=== PATIENT | female | born 1965 | race Caucasian/White ===

== ENCOUNTER 2016-10-12 22:19 | Inpatient (IN) | payer SELFPAY ==
--- NOTE | ~2016-10-12 | DS ---
Discharge Summary [facility] [address] [place]. [address] NAME: FELICIANO SHANE : 67 STATUS : DIS Damaris PAT#: [id number] AGE: 51 ADM/REG DATE : 10/12/16 MR#: [id number] REPORT SERV DATE: 10/14/16 DICTATED BY: SERGO NICK DATE: 10/14/16 REPORT STATUS : Draft TRANSCRIBED BY: MODL DATE: 10/14/16 ADMISSION DATE: 10/12/2016 DISCHARGE DATE: 10/14/2016 REASON FOR ADMISSION: This is a 51-year-old female, who presented with left-sided weakness and paresthesias with a 35-year history of smoking, now former smoker, and a history of uncontrolled diabetes. Imaging in the ER: CT scan of the brain which showed no acute intracranial process. The patient was admitted for TIA versus stroke, and neuro was consulted. MRI of the brain was ordered and would show acute right thalamic infarct. No bleed. The patient started on aspirin 325 mg and atorvastatin 80 mg p.o. daily. MRA of the head, which shows mild atherosclerotic features. MRA of the neck which shows right carotid stenosis proximally, carotid vertebrals of left subclavian within normal limits. Followup carotid ultrasound would show a category 1 disease, less than 50% stenosis of bilateral carotid arteries. Echocardiogram would show normal left ventricular size and systolic function with EF of 60%. No regional wall abnormalities, mild concentric LVH, mild diastolic dysfunction, normal right ventricular size and systolic function, aortic valve sclerosis without stenosis, normal left atrial size, negative intravenous bubble study. No evidence of intracardiac shunt or clot. The patient would have no residual left-sided weakness or paresthesias. She was seen by Physical Therapy here at the hospital and they cleared her for discharge home. So, the patient to be sent home with new prescriptions for aspirin and atorvastatin. Uncontrolled diabetes. The patient has a A1c of 11.3%. Apparently, this is actually down from recent A1c about a month ago that was 12.5. The patient is on Lantus 35 units at bedtime at home and was on Levemir 40 units here at the hospital. We will continue her on 40 units of long-acting insulin at night. She is on NovoLog 10 units at lunch time and a sliding scale. Here at the hospital, we had her on 10 units with all three meals and sliding scale. So, we will continue that at home as well. Discussed with the patient importance of controlling her diabetes now that she has had stroke. She is at increased risk for further cardiovascular events. The patient also has a left diabetic foot ulcer, just completed antibiotic course on that. Culture was growing out abundant Staphylococcus species, but she has just completed antibiotic course. So, we will have her follow up with her primary care for further care of her left foot. She does not have any foul-smelling drainage or appearance of infection. DISCHARGE CONDITION: Stable. DISCHARGE MEDICATIONS: 1. Lasix 20 mg p.o. daily. 2. Carvedilol 3.125 mg p.o. b.i.d. 3. Lisinopril 20 mg p.o. daily. 4. Lantus 40 units at bedtime. 5. NovoLog 10 units a.c. t.i.d. 6. NovoLog sliding-scale insulin. 7. Aleve 220 mg p.o. p.r.n. 8. Aspirin 325 mg p.o. daily. Discharge Summary [address] [address] NAME: FELICIANO SHANE : 67 STATUS : DIS Damaris PAT#: [id number] AGE: 51 ADM/REG DATE : 10/12/16 MR#: [id number] REPORT SERV DATE: 10/14/16 DICTATED BY: SERGO NICK DATE: 10/14/16 REPORT STATUS : Draft TRANSCRIBED BY: HERBERTL DATE: 10/14/16 9. Lipitor 80 mg p.o. daily. DISCHARGE PLAN: The patient is discharged home. Follow up with her primary care, Leonel Quezada next week on new medications and diabetes control and diabetic left foot ulcer. TDR/MODL Sergo Nick APN / [id number] CC: Janiya Bolden M.D. Louann L. Johnson, [facility]
--- NOTE | ~2016-10-12 | HP ---
History And Physical [place] [id number] [facility] [place]. [address] NAME: FELICIANO SHANE : 67 STATUS : ADM Damaris PAT#: [id number] AGE: 51 ADM/REG DATE : 10/12/16 MR#: [id number] REPORT SERV DATE: 10/13/16 DICTATED BY: KARINA MCKENZIE DATE: 10/13/16 REPORT STATUS : Draft TRANSCRIBED BY: MODL DATE: 10/13/16 DATE OF ADMISSION: 10/12/2016 CHIEF COMPLAINT: A 51-year-old female presenting with left-sided weakness and paresthesias. HISTORY OF PRESENT ILLNESS: The patient's history was obtained through careful interview with the patient and son coupled with review of [employer] [facility] medical records. The patient states for about four days she has been having illness. It began as some nausea with occasional vomiting, but then on the day prior to admission, she began to develop left arm numbness that then progressed into her face and her legs. She thinks that she has developed some left leg weakness as well. She finds that the left leg is easily fatigued on the day of admission, and she was "not stepping right." She has noticed no left arm weakness, however. No facial droop. No vision changes. No double vision. No dysarthria. No confusion. No gait disturbance. She admits for a few days that her diabetes has been difficult to control. She has had chills, but no fevers. No myalgias. No chest pain. No headache. No abdominal pain. She [facility] persistent [facility] foot ulcer. She completed an antibiotic about a week ago for this. She thinks that it has been healing well, but she has noticed occasional foul odor from it and some slight purulent drainage recently. REVIEW OF SYSTEMS: Otherwise, a 14-point review of systems was obtained and was negative. PAST MEDICAL HISTORY: 1. Diabetes with recent hemoglobin A1c of 12.5 in August 2016. 2. Diabetic foot ulcer. 3. MRSA. 4. Pleural effusion. PAST SURGICAL HISTORY: 1. Cleft lip surgery. 2. x2. ALLERGIES: ERYTHROMYCIN. SOCIAL HISTORY: She quit smoking 35 days ago. She is . Lives in [place], [place], with her son, daughter, and four grandchildren. She works for [email or web address]. No alcohol use. History And Physical [address] [address] NAME: FELICIANO HSANE : 67 STATUS : ADM Damaris PAT#: [id number] AGE: 51 ADM/REG DATE : 10/12/16 MR#: [id number] REPORT SERV DATE: 10/13/16 DICTATED BY: KARINA MCKENZIE DATE: 10/13/16 REPORT STATUS : Draft TRANSCRIBED BY: UMU DATE: 10/13/16 FAMILY HISTORY: Diabetes. CURRENT MEDICATIONS: Include aspirin 81 mg p.o. daily, Coreg 3.25 mg p.o. b.i.d., Lasix 20 mg p.o. daily, NovoLog 10 units subcutaneous daily with meals, sliding scale insulin, Lantus 35 units subcutaneous at bedtime, lisinopril 20 mg p.o. daily, and naproxen p.r.n. PHYSICAL EXAMINATION: VITAL SIGNS: Temperature 98.0, pulse 102, blood pressure 206/99, respiratory rate 16, and O2 saturation 99% on room air. GENERAL: A pleasant, cooperative female, no evidence of acute distress at this time. NEUROLOGICAL: Cranial nerves 2 through 12 are intact and symmetrical. The patient has 5/5 strength in upper and lower extremities that is symmetrical. HEENT: Pupils equal, round, and reactive to light. No conjunctival pallor. No scleral icterus. Nares are patent. Oropharynx is clear of obstruction. Dry mucous membranes. NECK: Trachea midline. No thyromegaly. LYMPH: No cervical lymphadenopathy. No supraclavicular lymphadenopathy. No inguinal lymphadenopathy. RESPIRATORY: Clear to auscultation at bases. No wheezes, rales, or rhonchi. Normal respiratory effort. CARDIOVASCULAR: Tachycardic, regular rhythm. No murmurs, rubs, or gallops. No extremity edema is appreciated. ABDOMEN: Soft, nontender, nondistended. Normal bowel sounds auscultated throughout. No organomegaly. DERMATOLOGICAL: The lateral aspect of her left foot shows a small about 1 cm diabetic foot ulcer with some purulent drainage and foul odor. Some necrotic debris around it. No surrounding erythema, heat, swelling, or tenderness though. Otherwise, patient has warm, dry extremities. No pallor, no cyanosis. PSYCHIATRIC: Normal affect. Good mood. Alert and oriented x3. LABORATORY DATA: White blood cell count 10.3, hemoglobin 12, hematocrit 35, and platelets 282. Sodium 133, potassium 4.3, chloride 97, bicarb 25, BUN 53, creatinine 1.22 from baseline creatinine of 0.8, glucose 247, troponin negative. INR 1.0. Liver enzymes within normal limits. STUDIES: 1. Chest x-ray by my own evaluation shows cardiomegaly. 2. EKG by my own evaluation shows sinus rhythm. 3. CT scan of the brain without contrast shows no acute intracranial process. ASSESSMENT AND PLAN: 1. Transient ischemic attack. We will check an MRI of the brain, MRA of the carotids and brain, check an echocardiogram, place on aspirin, check fasting lipid panel, and check telemetry. 2. Acute kidney injury. Place on IV fluids. Hold Lasix. 3. Diabetes. Check hemoglobin A1c. Continue Lantus. Place on sliding scale insulin. History And Physical [address] [address] NAME: FELICIANO SHANE : 67 STATUS : ADM Damaris PAT#: [id number] AGE: 51 ADM/REG DATE : 10/12/16 MR#: [id number] REPORT SERV DATE: 10/13/16 DICTATED BY: KARINA MCKENZIE DATE: 10/13/16 REPORT STATUS : Draft TRANSCRIBED BY: UMU DATE: 10/13/16 4. Left diabetic foot ulcer. Continue antibiotics (?). We will obtain a Wound Care consult. Recheck a wound culture, which was done at the bedside. KPL/MODL Karina Mckenzie M.D. / [id number] CC: Dario Jordan Jr, MD David Phillips, M.D.
--- NOTE | ~2016-10-12 | CN ---
Consultation Report [facility] [address] [place]. [address] NAME: FELICIANO SHANE : 67 STATUS : ADM Damaris PAT#: [id number] AGE: 51 ADM/REG DATE : 10/12/16 MR#: [id number] REPORT SERV DATE: 10/13/16 DICTATED BY: CLARENCE MILLER DATE: 10/13/16 REPORT STATUS : Draft TRANSCRIBED BY: MODCesar DATE: 10/13/16 NEUROLOGY CONSULTATION DATE OF CONSULTATION: HOSPITALIST: Dario Jordan MD REASON FOR CONSULTATION: Stroke. HISTORY OF PRESENT ILLNESS: The patient is a 51-year-old female who has been sick for the last 4 days. On Sunday, she started to experience nausea. On Sunday, she started to experience nausea and vomiting while she was at work, so she went home sick. She felt ill the whole day. She denied any fever or chills. On Sunday, she woke up and she had numbness and tingling along with weakness in the left side of her body. She denied any ataxia. She denied any dysarthria, aphasia, or changes in her vision. This numbness and weakness persisted on the left side of her body through Sunday. On evening, she decided to come in to work for further evaluation and treatment. PAST MEDICAL HISTORY: Left foot ulcer, diabetes mellitus type 2 with a hemoglobin A1c as high as 12.5, MRSA, pleural effusion, hypertension, tobacco abuse, diastolic dysfunction, pulmonary hypertension, vertigo, and peripheral neuropathy. PAST SURGICAL HISTORY: Cleft lip surgery, x2, and cataract extraction with lens implantation at the age of 31. HOME MEDICATIONS: Includes aspirin 81 mg q.a.m., Coreg 3.25 mg b.i.d., Lasix 20 mg q.a.m., NovoLog insulin 10 units subcu with lunch and sliding scale a.c. and h.s., Lantus insulin 35 units with supper, Zestril 20 mg at bedtime, Aleve p.r.n. ALLERGIES: ERYTHROMYCIN. SOCIAL HISTORY: The patient is . She lives with her son and daughter and has 4 grand children. She works for [employer]. She is a smoker, who states she quit 30 days ago. Does not drink alcohol or use illicits. FAMILY HISTORY: The patient's mother is 71 years old. She just was diagnosed with diabetes type 2. She also has a pacemaker for neurocardiogenic syncope. Her father is 71 years old. He has diabetes and also pacemaker. She is an only sibling. REVIEW OF SYSTEMS: For pertinent positives, see HPI. PHYSICAL EXAMINATION: GENERAL: The patient is a 51-year-old female, who stands 6 feet 1 and weighs 210 pounds. Consultation Report [address] [address] NAME: FELICIANO SHANE : 67 STATUS : ADM Damaris PAT#: [id number] AGE: 51 ADM/REG DATE : 10/12/16 MR#: [id number] REPORT SERV DATE: 10/13/16 DICTATED BY: CLARENCE MILLER DATE: 10/13/16 REPORT STATUS : Draft TRANSCRIBED BY: UMU DATE: 10/13/16 She is afebrile. Heart rate 86, respiratory rate 24, O2 saturations on room air 99%, blood pressure 180/83. NEUROLOGIC: The patient is alert. She is oriented x4. She is pleasant. Communicates appropriately. Pupils are 3 mm. PERRLA. Cranial nerves 2 through 12 are intact except the patient does mention she has numbness on the left side of her face in all 3 trigeminal regions. She has no dysarthria. No aphasia and vision via confrontation is full in both [place]. [id number]-uxcy reveals no ataxia. Cyxr-[id number] no ataxia, no dysmetria, asterixis, or tremor. No pronator drift. Upper extremity strength is 5/5 bilaterally. Upper DTRs 1+ bilaterally. The patient reports diminished sensation on the left side when compared to the right. In the lower extremities, strength is 5/5 bilaterally. Unable to elicit DTRs in the lower extremities (the patient has peripheral neuropathy). The patient reports diminished sensation on the left side when compared to the right. NECK: No carotid bruits. No JVD. CHEST: Lung sounds clear. CARDIAC: Regular rate and rhythm with a few premature beats and a grade 2/6 systolic murmur heard best in the aortic region. LABORATORY DATA: CBC normal. BMP: BUN was 58 and glucose 188. A1c 11.3. Thyroid normal. Total cholesterol 345, HDL 39, LDL 306, and triglycerides 410. Urinalysis was negative for UTI. MRI of the brain shows acute right thalamic infarct. MRA of the head, neck, proximal right carotid stenosis. NIH stroke scale was 2. ASSESSMENT/PLAN: Acute right thalamic stroke. The patient's aspirin will be increased to 325 mg daily. She will be placed on Lipitor 80 mg daily. PT and OT will be consulted. The patient will not need speech therapy. She most likely will not need rehab. in service educator will be consulted. The patient's education was done on diminishing risk factors. She will undergo an echocardiogram with bubble study and carotid duplex study. Vascular Surgery has already seen the patient in consultation. Thank you again for including us in consultation. We will continue to follow with you. FAITH/UMU GHISLAINE SzymanskiP-BC / [id number] CC: Dario Jordan Jr, MD Leonel Quezada M.D.
[2016-10-12 18:39] LABS: BASOPHILS 0.3 %; BASOPHILS ABSOLUTE 0.03 10/3/uL (0.0-0.16); EOSINOPHILS 1.7 %; EOSINOPHILS ABSOLUTE 0.18 10/3/uL (0.0-0.53); ER CBC TAT 0 Hrs 05 Mins; HEMATOCRIT 35.3 % (36.0-48.0); HEMOGLOBIN 11.9 g/dL (12.0-16.0); IMMATURE GRANULOCYTES 0.3 %; IMMATURE GRANULOCYTES ABSOLUTE 0.03 10/3/uL (0.0-0.11); LYMPHOCYTES ABSOLUTE 3.93 10/3/uL (0.67-4.30); MANUAL DIFF NO %; MEAN CORPUS HGB CONC 33.7 g/dL (32.0-36.0); MEAN CORPUSCULAR HEMOGLOB 26.6 pg (26.0-34.0); MEAN PLATELET VOLUME 9.4 fL (9.2-13.0); MONOCYTES 5.3 %; MONOCYTES ABSOLUTE 0.55 10/3/uL (0.21-1.20); NEUTROPHILS 54.4 %; NEUTROPHILS ABSOLUTE 5.62 10/3/uL (2.02-8.40); PLATELET COUNT 282 10/3/uL (150-400); RBC DISTRIBUTION WIDTH 13.9 % (12.0-16.0); RED CELL COUNT 4.47 10/6/uL (4.0-5.6); WHITE BLOOD CELLS 10.3 10/3/uL (4.5-10.5)
[2016-10-12 18:50] LABS: PROTIME (NOT ORD) 12.9 SEC (12.0-14.5)
[2016-10-12 18:54] LABS: A/G RATIO 0.7 (0.7-1.9); ALKALINE PHOSPHATASE 97 U/L (45-117); CALCIUM, SERUM 8.8 MG/DL (8.5-10.4); CHLORIDE, SERUM 97 MMOL/L (96-112); CO2 (CARBON DIOXIDE) 25 MMOL/L (24-34); CREATININE 1.22 MG/DL (0.55-1.02); GFR AFRICAN AMERICAN 60 ML/MIN (>=60); GFR NON AFRICAN AMERICAN 52 ML/MIN (>=60); GLOBULIN 4.7 G/DL (2.5-4.1); POTASSIUM, SERUM 4.3 MMOL/L (3.5-5.3); SGOT(AST) 18 U/L (5-40); SGPT(ALT) 29 U/L (5-65); SODIUM, SERUM 133 MMOL/L (135-148); TOTAL BILIRUBIN 0.2 MG/DL (0-1.2); TROPONIN I <0.02 NG/ML (<0.05)
[2016-10-12 18:56] LABS: ALBUMIN 3.3 G/DL (3.5-5.0); BUN (BLOOD UREA NITROGEN) 53 MG/DL (6-23); GLUCOSE, SERUM 247 MG/DL (60-99)
[~2016-10-12 22:19] MED LIST: ALEVE220 MG PO; ASAB PO; BACDS PO; COREG3 PO; DULERA PO; HUMALOGMIX SC; K500 PO; L20 PO; LANTUS SC; LEVAQUIN750 MG PO; NOVOLOG SC; PRIN10 PO; PRIN20 PO; ZYVOXPO PO
[2016-10-12] MEDS ORDERED: L20 PO (22:26)
[2016-10-12] MEDS ORDERED: LANTUS SC (22:27)
[2016-10-12] MEDS ORDERED: ASAB PO (22:27)
[2016-10-12] MEDS ORDERED: ZESTRIL20 MG PO (22:27)
[2016-10-12] MEDS ORDERED: COREG3 PO (22:27)
[2016-10-12] MEDS ORDERED: NOVOLOG SC ×2 (22:28→22:29)
[2016-10-12] MEDS ORDERED: ALEVE220 MG PO (22:30)
[2016-10-13 04:26] LABS: BASOPHILS 0.4 %; BASOPHILS ABSOLUTE 0.04 10/3/uL (0.0-0.16); EOSINOPHILS 2.4 %; EOSINOPHILS ABSOLUTE 0.23 10/3/uL (0.0-0.53); HEMOGLOBIN 11.9 g/dL (12.0-16.0); IMMATURE GRANULOCYTES 0.1 %; IMMATURE GRANULOCYTES ABSOLUTE 0.01 10/3/uL (0.0-0.11); LYMPHOCYTES 45.8 %; LYMPHOCYTES ABSOLUTE 4.37 10/3/uL (0.67-4.30); MEAN CORPUSCULAR HEMOGLOB 26.6 pg (26.0-34.0); MEAN CORPUSCULAR VOLUME 78.3 fL (80-100); MEAN PLATELET VOLUME 9.4 fL (9.2-13.0); MONOCYTES 6.8 %; MONOCYTES ABSOLUTE 0.65 10/3/uL (0.21-1.20); NEUTROPHILS 44.5 %; NEUTROPHILS ABSOLUTE 4.24 10/3/uL (2.02-8.40); PLATELET COUNT 260 10/3/uL (150-400); RED CELL COUNT 4.47 10/6/uL (4.0-5.6); WHITE BLOOD CELLS 9.5 10/3/uL (4.5-10.5)
[2016-10-13 04:29] LABS: MANUAL DIFF NO %
[2016-10-13 04:33] LABS: PARTIAL THROMBO TIME 26.7 SEC (22.5-37.2); PROTIME (NOT ORD) 13.1 SEC (12.0-14.5)
[2016-10-13 04:51] LABS: A/G RATIO 0.7 (0.7-1.9); ALBUMIN 3.2 G/DL (3.5-5.0); CHLORIDE, SERUM 102 MMOL/L (96-112); CHOL/HDL RATIO(NOT ORDER) 8.8 (0-5); CHOLESTEROL 345 MG/DL (< 200); CO2 (CARBON DIOXIDE) 23 MMOL/L (24-34); CPK (IF ELEVATED MB BANDS) 168 U/L (0-200); CREATININE 1.05 MG/DL (0.55-1.02); GFR AFRICAN AMERICAN 72 ML/MIN (>=60); GFR NON AFRICAN AMERICAN 62 ML/MIN (>=60); GLOBULIN 4.3 G/DL (2.5-4.1); HDL CHOLESTEROL 39 MG/DL (> 49); NON-HDL CHOLESTEROL 306 MG/DL (< 160); POTASSIUM, SERUM 4.4 MMOL/L (3.5-5.3); SGOT(AST) 13 U/L (5-40); SGPT(ALT) 25 U/L (5-65); SODIUM, SERUM 136 MMOL/L (135-148); TOTAL BILIRUBIN 0.3 MG/DL (0-1.2); TOTAL PROTEIN 7.5 G/DL (6.0-8.5); TRIGLYCERIDE 410 MG/DL (< 150); TROPONIN I <0.02 NG/ML (<0.05)
[2016-10-13 05:01] LABS: ALKALINE PHOSPHATASE 84 U/L (45-117); BUN (BLOOD UREA NITROGEN) 58 MG/DL (6-23); GLUCOSE, SERUM 188 MG/DL (60-99)
[2016-10-13 10:34] LABS: ASCORBIC ACID (UR NOT ORDER) NEG (NEG); BILIRUBIN, URINE NEGATIVE (NEG); KETONE, URINE NEGATIVE (NEG); LEUKOCYTE ESTERASE(NOT OR NEG (NEG); WBC (NOT ORDERED) (RFLEX) 2 (0-5)
[2016-10-13 16:28] LABS: CREATININE, URINE 25.9 MG/DL
[2016-10-14 04:49] LABS: BASOPHILS 0.5 %; BASOPHILS ABSOLUTE 0.04 10/3/uL (0.0-0.16); EOSINOPHILS 2.6 %; EOSINOPHILS ABSOLUTE 0.19 10/3/uL (0.0-0.53); HEMOGLOBIN 12.2 g/dL (12.0-16.0); IMMATURE GRANULOCYTES 0.1 %; IMMATURE GRANULOCYTES ABSOLUTE 0.01 10/3/uL (0.0-0.11); LYMPHOCYTES 44.7 %; LYMPHOCYTES ABSOLUTE 3.27 10/3/uL (0.67-4.30); MEAN CORPUS HGB CONC 33.9 g/dL (32.0-36.0); MEAN CORPUSCULAR HEMOGLOB 26.8 pg (26.0-34.0); MEAN CORPUSCULAR VOLUME 78.9 fL (80-100); MEAN PLATELET VOLUME 9.2 fL (9.2-13.0); MONOCYTES ABSOLUTE 0.51 10/3/uL (0.21-1.20); NEUTROPHILS 45.1 %; PLATELET COUNT 260 10/3/uL (150-400); RBC DISTRIBUTION WIDTH 13.9 % (12.0-16.0); RED CELL COUNT 4.56 10/6/uL (4.0-5.6); WHITE BLOOD CELLS 7.3 10/3/uL (4.5-10.5)
[2016-10-14 04:50] LABS: MANUAL DIFF NO %
[2016-10-14 05:24] LABS: CALCIUM, SERUM 9.2 MG/DL (8.5-10.4); CHLORIDE, SERUM 105 MMOL/L (96-112); CO2 (CARBON DIOXIDE) 24 MMOL/L (24-34); CREATININE 0.94 MG/DL (0.55-1.02); GFR AFRICAN AMERICAN 82 ML/MIN (>=60); GFR NON AFRICAN AMERICAN 71 ML/MIN (>=60); GLUCOSE, SERUM 198 MG/DL (60-99); POTASSIUM, SERUM 4.4 MMOL/L (3.5-5.3); SODIUM, SERUM 138 MMOL/L (135-148)
[2016-10-14 05:27] LABS: BUN (BLOOD UREA NITROGEN) 40 MG/DL (6-23); FOLATE 7.7 NG/ML (>5.2)
[2016-10-14] MEDS ORDERED: ASA5GR PO (18:29)
[2016-10-14] MEDS ORDERED: LIPITOR80 MG (18:30)
== END 2016-10-14 18:47 | disposition home or self-care (01) | DRG 65 ==
LOC: ER 22:19 → CDU1 22:53
PROVIDERS: Emergency Medicine; Internal Medicine; Neurological Surgery
DX: I63.9 Cerebral infarction, unspecified (principal); G81.94 Hemiplegia, unspecified affecting left nondominant side; N17.9 Acute kidney failure, unspecified; E11.621 Type 2 diabetes mellitus with foot ulcer; E11.65 Type 2 diabetes mellitus with hyperglycemia; I10 Essential (primary) hypertension; I51.7 Cardiomegaly; Z86.14 Personal history of Methicillin resistant Staphylococcus aureus infection; Z87.09 Personal history of other diseases of the respiratory system; Z88.1 Allergy status to other antibiotic agents; Z79.4 Long term (current) use of insulin; Z79.82 Long term (current) use of aspirin; Z87.891 Personal history of nicotine dependence; Z79.899 Other long term (current) drug therapy
CPT/HCPCS: 51702; 70450; 70544; 70547; 70548; 70551-52; 71020; 76775; 80048; 80053; 80061; 81001; 82140; 82306; 82533; 82550; 82570; 82607; 82746; 82962; 83036; 83735; 84156; 84443; 84484; 85025; 85610; 85730; 87070; 87077; 87186; 87205; 93005; 93880; 96372; 97161-GP; 99285; A9270-GY; A9577; C8929; G0378; G8978-CJ-GP; G8979-CI-GP; Q9957